=== PATIENT | male | born 1955 | race Caucasian/White ===

== ENCOUNTER → 2021-05-15 | Outpatient (CLI) | payer OTHER ==
[~2021-05-15] MED LIST: ACET325 PO; Atarax10 MG PO; Betamethasone D30 ML TOP; CEPH500 PO; DECADRON6 M1 PO; EPIPEN0.3 MG/0.3 IM; FAMO40 PO; FUROSEMIDE40 MG PO; GABA100 PO; GLUCHON PO; HYDACE10B PO; Hydrocortiso453.6 GM TOP; MOBIC15 MG PO; MULVITA PO; SPIRONOLACTONE50 MG PO; TRIDERM28.4 GM TOP; VISBIOME 112.51 EACH PO
== END ==
LOC: PLD 07:41 → LAB SHORT 07:41
DX: R21 Rash and other nonspecific skin eruption (principal)
CPT/HCPCS: 88312

== ENCOUNTER 2021-07-10 16:59 | Inpatient (IN) | payer MEDICARE, MEDICAID ==
[~2021-07-10] VITALS: Ht 182.9 cm; Wt 158.8 kg
[2021-07-10] MEDS ORDERED: FUROSEMIDE40 MG PO (19:47)
[2021-07-10] MEDS ORDERED: SPIRONOLACTONE50 MG PO (19:47)
[2021-07-10] MEDS ORDERED: Hydrocortiso453.6 GM TOP (19:47)
[2021-07-10] MEDS ORDERED: TRIDERM28.4 GM TOP (19:48)
[2021-07-10] MEDS ORDERED: Atarax10 MG PO (19:49)
[2021-07-10] MEDS ORDERED: MOBIC15 MG PO (19:49)
[2021-07-10] MEDS ORDERED: Betamethasone D30 ML TOP (19:50)
[2021-07-10] MEDS ORDERED: EPIPEN0.3 MG/0.3 IM (19:57)
[2021-07-10] MEDS ORDERED: FAMO40 PO (19:58)
[2021-07-10] MEDS ORDERED: GLUCHON PO (19:58)
[2021-07-10] MEDS ORDERED: MULVITA PO (19:58)
[2021-07-10 21:27] LABS: Source, Urine Clean Catch
[2021-07-10 21:32] LABS: Appearance, Urine Clear (Clear); Bilirubin, Urine Neg (Neg); Blood, Urine Neg (Neg); Color, Urine Yellow (P-Yellow); Glucose Qualitative, Urine Neg (Neg); Ketones, Urine 1+ (Neg); Leukocyte Esterase, Urine Neg (Neg); Nitrite, Urine Neg (Neg); Protein, Urine 1+ (Neg); Urobilinogen, Urine NORM (Normal)
[2021-07-11 05:00] LABS: BASOPHILS ABSOLUTE AUTO 0.07 K/mm3 (0.00-0.23); BASOPHILS PERCENT AUTO 0 % (0-2); EOSINOPHILS ABSOLUTE AUTO 0.06 K/mm3 (0.00-0.68); EOSINOPHILS PERCENT AUTO 0 % (0-6); Hematocrit 38.1 % (37.0-53.0); Hemoglobin 12.6 g/dL (13.5-17.5); IMMATURE GRAN PERCENT AUTO 1 % (0-1); LYMPHOCYTES ABSOLUTE AUTO 1.07 K/mm3 (0.84-5.20); LYMPHOCYTES PERCENT AUTO 6 % (21-46); MONOCYTES PERCENT AUTO 9 % (4-13); Mean Corpuscular HGB 31.7 pg (26.0-34.0); Mean Corpuscular HGB Conc 33.1 g/dL (31.5-36.5); Mean Corpuscular Volume 96 fL (80-100); Mean Platelet Volume 9.3 fL (9.1-12.4); NEUTROPHILS ABSOLUTE AUTO 14.45 K/mm3 (1.96-9.15); NEUTROPHILS PERCENT AUTO 83 % (41-73); Platelet Count 273 K/mm3 (150-400); RDW Coefficient Variation 14.4 % (11.7-14.2); RDW Standard Deviation 50.4 fL (35.1-46.3); Red Blood Cell Count 3.97 M/mm3 (4.30-5.90); White Blood Cell Count 17.35 K/mm3 (4.00-11.30)
[2021-07-11 05:37] LABS: Albumin, Blood 2.5 g/dL (3.4-5.0); Albumin/Globulin Ratio 0.6 (0.8-1.8); Bilirubin, Total 0.6 mg/dL (0.1-1.0); Bun/Creatinine Ratio 15.9 (12.0-20.0); Calcium, Blood 8.3 mg/dL (8.5-10.1); Creatinine, Blood 1.32 mg/dL (0.60-1.20); Globulin, Blood 4.1 g/dL (2.2-4.0); Potassium, Blood 3.6 mmol/L (3.5-5.5); Total Protein, Blood 6.6 g/dL (6.4-8.2)
[2021-07-12 05:06] LABS: Bun/Creatinine Ratio 17.7 (12.0-20.0); Creatinine, Blood 1.41 mg/dL (0.60-1.20); Potassium, Blood 3.2 mmol/L (3.5-5.5)
[2021-07-13 05:13] LABS: BASOPHILS PERCENT AUTO 1 % (0-2); EOSINOPHILS ABSOLUTE AUTO 0.16 K/mm3 (0.00-0.68); EOSINOPHILS PERCENT AUTO 1 % (0-6); Hematocrit 42.2 % (37.0-53.0); Hemoglobin 14.4 g/dL (13.5-17.5); IMMATURE GRAN ABSOLUTE AUTO 0.29 K/mm3 (0.00-0.10); IMMATURE GRAN PERCENT AUTO 2 % (0-1); LYMPHOCYTES ABSOLUTE AUTO 1.18 K/mm3 (0.84-5.20); LYMPHOCYTES PERCENT AUTO 7 % (21-46); MONOCYTES ABSOLUTE AUTO 2.08 K/mm3 (0.16-1.47); MONOCYTES PERCENT AUTO 12 % (4-13); Mean Corpuscular HGB 31.2 pg (26.0-34.0); Mean Corpuscular HGB Conc 34.1 g/dL (31.5-36.5); Mean Platelet Volume 9.4 fL (9.1-12.4); NEUTROPHILS ABSOLUTE AUTO 13.24 K/mm3 (1.96-9.15); NEUTROPHILS PERCENT AUTO 78 % (41-73); Platelet Count 397 K/mm3 (150-400); RDW Coefficient Variation 13.6 % (11.7-14.2); RDW Standard Deviation 46.3 fL (35.1-46.3); Red Blood Cell Count 4.62 M/mm3 (4.30-5.90); White Blood Cell Count 17.05 K/mm3 (4.00-11.30)
[2021-07-13 05:31] LABS: Mean Corpuscular Volume 91 fL (80-100)
[2021-07-13 05:32] LABS: Bun/Creatinine Ratio 20.4 (12.0-20.0); Calcium, Blood 9.5 mg/dL (8.5-10.1); Creatinine, Blood 1.67 mg/dL (0.60-1.20); Potassium, Blood 2.9 mmol/L (3.5-5.5)
[2021-07-14 04:56] LABS: BASOPHILS ABSOLUTE AUTO 0.12 K/mm3 (0.00-0.23); BASOPHILS PERCENT AUTO 1 % (0-2); EOSINOPHILS PERCENT AUTO 2 % (0-6); Hemoglobin 16.1 g/dL (13.5-17.5); IMMATURE GRAN PERCENT AUTO 3 % (0-1); LYMPHOCYTES ABSOLUTE AUTO 1.05 K/mm3 (0.84-5.20); LYMPHOCYTES PERCENT AUTO 8 % (21-46); MONOCYTES ABSOLUTE AUTO 1.59 K/mm3 (0.16-1.47); MONOCYTES PERCENT AUTO 13 % (4-13); Mean Corpuscular HGB 31.3 pg (26.0-34.0); Mean Corpuscular HGB Conc 34.3 g/dL (31.5-36.5); Mean Corpuscular Volume 91 fL (80-100); Mean Platelet Volume 9.4 fL (9.1-12.4); NEUTROPHILS ABSOLUTE AUTO 9.33 K/mm3 (1.96-9.15); NEUTROPHILS PERCENT AUTO 74 % (41-73); Platelet Count 364 K/mm3 (150-400); RDW Coefficient Variation 13.4 % (11.7-14.2); RDW Standard Deviation 45.8 fL (35.1-46.3); Red Blood Cell Count 5.15 M/mm3 (4.30-5.90); White Blood Cell Count 12.69 K/mm3 (4.00-11.30)
[2021-07-14] MEDS ORDERED: CEPH500 PO (11:42)
[2021-07-14] MEDS ORDERED: GABA100 PO (11:43)
[2021-07-14] MEDS ORDERED: VISBIOME 112.51 EACH PO (11:43)
[2021-07-14] MEDS ORDERED: HYDACE10B PO (11:44)
== END 2021-07-14 18:06 | disposition home or self-care (01) | DRG 872 ==
LOC: MEDS 16:59
PROVIDERS: Internal Medicine; ADMIT Family Medicine
DX: A41.9 Sepsis, unspecified organism (principal); N17.9 Acute kidney failure, unspecified; L03.115 Cellulitis of right lower limb; L03.116 Cellulitis of left lower limb; Z68.42 Body mass index [BMI] 45.0-49.9, adult; R65.20 Severe sepsis without septic shock; I89.0 Lymphedema, not elsewhere classified; E66.9 Obesity, unspecified; G62.9 Polyneuropathy, unspecified; D72.829 Elevated white blood cell count, unspecified; E87.6 Hypokalemia; T50.2X5A Adverse effect of carbonic-anhydrase inhibitors, benzothiadiazides and other diuretics, initial encounter; I87.2 Venous insufficiency (chronic) (peripheral); Z87.442 Personal history of urinary calculi; Z98.52 Vasectomy status; Z90.49 Acquired absence of other specified parts of digestive tract; Z88.8 Allergy status to other drugs, medicaments and biological substances
CPT/HCPCS: 36415; 71045; 80048; 80053; 83880; 84132; 85025; 87040; A9270; J1650; J1940; J3010; J3480; J7060

== ENCOUNTER 2021-07-14 23:42 | Inpatient (IN) | payer MEDICARE ==
[~2021-07-14] VITALS: Ht 182.9 cm; Wt 160.0 kg
[~2021-07-14 23:42] MED LIST changes: -ACET325 PO; -DECADRON6 M1 PO
--- NOTE | 2021-07-15 06:05 | NUR ---
SHIFT SUMMARY PATIENT ALERT AND ORIENTED. EXTREMELY WEAK ON HIS FEET, HAD A FALL AT HOME PRIOR TO ADMIT DUE TO THIS. REPORTS PAIN IN HIS LEGS DUE TO CELLULITIS. NO COMPLAINTS OF SHORTNESS OF BREATH. NO ACUTE ISSUES NOTED. CALL LIGHT WITHIN REACH. REPORT GIVEN TO ONCOMING RN.
[2021-07-15 06:33] LABS: Hematocrit 41.1 % (37.0-53.0); Hemoglobin 13.9 g/dL (13.5-17.5); Mean Corpuscular HGB Conc 33.8 g/dL (31.5-36.5); Mean Corpuscular Volume 92 fL (80-100); Mean Platelet Volume 9.4 fL (9.1-12.4); Platelet Count 372 K/mm3 (150-400); RDW Coefficient Variation 13.3 % (11.7-14.2); RDW Standard Deviation 45.3 fL (35.1-46.3); Red Blood Cell Count 4.49 M/mm3 (4.30-5.90); White Blood Cell Count 8.88 K/mm3 (4.00-11.30)
[2021-07-15 06:56] LABS: Albumin, Blood 2.7 g/dL (3.4-5.0); Albumin/Globulin Ratio 0.5 (0.8-1.8); Bilirubin, Total 0.7 mg/dL (0.1-1.0); Bun/Creatinine Ratio 26.9 (12.0-20.0); Calcium, Blood 9.1 mg/dL (8.5-10.1); Creatinine, Blood 1.75 mg/dL (0.60-1.20); Globulin, Blood 5.2 g/dL (2.2-4.0); Potassium, Blood 2.7 mmol/L (3.5-5.5); Total Protein, Blood 7.9 g/dL (6.4-8.2)
[2021-07-15 07:10] LABS: BAND PERCENT MAN 1 % (0-8); BASOPHILS ABSOLUTE MAN 0.17 K/mm3 (0.00-0.23); BASOPHILS PERCENT MAN 2 % (0-2); EOSINOPHILS PERCENT MAN 0 % (0-6); LYMPHOCYTES ABSOLUTE MAN 0.88 K/mm3 (0.84-5.20); LYMPHOCYTES PERCENT MAN 10 % (21-46); MONOCYTES ABSOLUTE MAN 1.77 K/mm3 (0.16-1.47); MONOCYTES PERCENT MAN 20 % (4-13); MYELOCYTE ABSOLUTE MAN 0.26 K/mm3 (0.00-0.00); MYELOCYTE PERCENT MAN 3 % (0-0); NEUTROPHILS ABSOLUTE MAN 5.77 K/mm3 (1.96-9.15); SEG NEUTROPHILS PERCENT MAN 64 % (41-73); TOTAL CELLS COUNTED 100
--- NOTE | 2021-07-15 18:16 | NUR ---
SHIFT SUMMARY PT HAS BEEN RESTING IN BED. NO SOB, CHEST PAIN OR RESP ISSUES. IN FACT DR ORDERED ANOTHER COVID TEST TO DETERMINE IF THE RAPID HE RECIEVED IN REEDSPORT WAS ACCURATE. RESULT STILL PENDING. PT IS VERY PAINFUL WHEN WALKING. BUT CAN GO TO THE BEDSIDE BATHROOM WITH STANDBY ASSISTANCE. HE IS ALSO PAINFUL IN HIS RIGHT SHOULDER. HE IS VERY PLEASANT AND COOPERATIVE WITH CARE.
[2021-07-15 19:10] LABS: SARS-Cov-2 (COVID-19) PCR, MMC POSITIVE (NEGATIVE)
--- NOTE | 2021-07-16 04:36 | NUR ---
SHIFT SUMMARY: A&0X4, REDNESS/CELLULITIS TO BLE, LEGS WRAPPED CDI, 3+ PITTING EDEMA TO BLE, E/U RESP, LCTA DIMINISHED BASES. RED RASH TO CHEST/ARMS PATIENT STATES THIS IS ONGOING. PAIN TREATED PER EMAR. PATIENT COVID POSITIVE, NO COMPLAINTS SOB/DYSPNEA. NO SIGNIFICANT EVENTS ON NOC.
[2021-07-16 05:11] LABS: Hematocrit 41.3 % (37.0-53.0); Mean Corpuscular HGB 31.2 pg (26.0-34.0); Mean Corpuscular HGB Conc 33.9 g/dL (31.5-36.5); Mean Corpuscular Volume 92 fL (80-100); Mean Platelet Volume 9.7 fL (9.1-12.4); Platelet Count 387 K/mm3 (150-400); RDW Coefficient Variation 13.2 % (11.7-14.2); RDW Standard Deviation 44.5 fL (35.1-46.3); Red Blood Cell Count 4.49 M/mm3 (4.30-5.90); White Blood Cell Count 7.37 K/mm3 (4.00-11.30)
[2021-07-16 05:31] LABS: BAND PERCENT MAN 13 % (0-8); BASOPHILS ABSOLUTE MAN 0.07 K/mm3 (0.00-0.23); BASOPHILS PERCENT MAN 1 % (0-2); EOSINOPHILS PERCENT MAN 0 % (0-6); LYMPHOCYTES ABSOLUTE MAN 0.81 K/mm3 (0.84-5.20); LYMPHOCYTES PERCENT MAN 11 % (21-46); METAMYELOCYTE ABSOLUTE MAN 0.22 K/mm3 (0.00-0.00); METAMYELOCYTE PERCENT MAN 3 % (0-0); MONOCYTES ABSOLUTE MAN 1.17 K/mm3 (0.16-1.47); MONOCYTES PERCENT MAN 16 % (4-13); MYELOCYTE ABSOLUTE MAN 0.14 K/mm3 (0.00-0.00); MYELOCYTE PERCENT MAN 2 % (0-0); NEUTROPHILS ABSOLUTE MAN 4.93 K/mm3 (1.96-9.15); SEG NEUTROPHILS PERCENT MAN 54 % (41-73); TOTAL CELLS COUNTED 100
[2021-07-16 05:55] LABS: Bun/Creatinine Ratio 35.9 (12.0-20.0); Calcium, Blood 9.2 mg/dL (8.5-10.1); Creatinine, Blood 1.28 mg/dL (0.60-1.20)
--- NOTE | 2021-07-16 18:18 | NUR ---
SHIFT SUMMARY PT Ax0x4. PLEASANT AND COOPERATIVE WITH CARE. PT DENIED PAIN THIS SHIFT. PT REQUESTED LEGS WITH CHRONIC LYMPHEDEMA BE RE-WRAPPED THIS SHIFT. BLE DRESSINGS WERE CHANGED AND SKIN WAS CLEANSED. COMPRESSION DRESSING APPLIED AFTER WOUND CARE. VITALS REVIEWED. CURRENT PLAN IS FOR PATIENT TO DC TOMORROW. PT CURRENTLY RESTING IN BED WITH CALL LIGHT IN REACH. DENIES ANY NEEDS AT THIS TIME.
[2021-07-17 05:01] LABS: Bun/Creatinine Ratio 33.6 (12.0-20.0); Calcium, Blood 9.7 mg/dL (8.5-10.1); Creatinine, Blood 1.28 mg/dL (0.60-1.20); Potassium, Blood 3.5 mmol/L (3.5-5.5)
--- NOTE | 2021-07-17 06:11 | NUR ---
SHIFT SUMMARY: NO SIGNINFCANT EVENTS ON NOC. PATIENT REMAINS WITH CELLULITIS TO BLE, WRAPS CDI, DRESINGS CHANGED BY DAY SHIFT. PAIN TREATED PER EMAR. PATIENT IS EAGER TO DC VOICED CONCERN REGARDING GETTING HIS PRESCRIPTIONS UPON DC. PER DAY SHIFT TEAM PATIENT PRESCRIPTIONS TO BE SENT TO [facility] FOR PATIENT PICKUP PRIOR TO RETURNING TO [place].
[2021-07-17] MEDS ORDERED: ACET325 PO (10:52)
[2021-07-17] MEDS ORDERED: DECADRON6 M1 PO (10:53)
--- NOTE | 2021-07-17 14:44 | NUR ---
PT DISCHARGED THE PT VERBALIZED UNDERSTANDING OF THE DC INSTRUCTIONS. THE PTS PRESCRIPTIONS WERE FAXED TO [facility] IN THE [facility]. THE PT WAS GIVEN A PRESCRIPTION FOR [facility]. THE PT WAS REMINDED TO FOLLOW UP WITH HIS PCP . THE PT WAS TRANSFERED VIA WHEELCHAIR TO MEET HIS RIDE AT THE FRONT ACCOMPANIED BY THE WEB ADMINISTRATOR. PT APPEARED TO BE BREATHING EASILY ON RA
== END 2021-07-17 12:45 | disposition home or self-care (01) | DRG 871 ==
LOC: MEDS 23:42
PROVIDERS: Internal Medicine; Student in an Organized Health Care Education/Training Program; ADMIT Internal Medicine
PROC: 8E0ZXY6 Isolation (ICD-10-PCS; principal; 2021-07-15)
PROC: XW033E5 Introduction of Remdesivir Anti-infective into Peripheral Vein, Percutaneous Approach, New Technology Group 5 (ICD-10-PCS; 2021-07-15)
PROC: 3E0333Z Introduction of Anti-inflammatory into Peripheral Vein, Percutaneous Approach (ICD-10-PCS; 2021-07-15)
DX: A41.89 Other specified sepsis (principal); U07.1 COVID-19; J96.01 Acute respiratory failure with hypoxia; N17.9 Acute kidney failure, unspecified; L03.115 Cellulitis of right lower limb; L03.116 Cellulitis of left lower limb; E87.1 Hypo-osmolality and hyponatremia; G62.9 Polyneuropathy, unspecified; E66.9 Obesity, unspecified; I89.0 Lymphedema, not elsewhere classified; E87.6 Hypokalemia; R65.20 Severe sepsis without septic shock; I87.2 Venous insufficiency (chronic) (peripheral); Z87.442 Personal history of urinary calculi; Z90.49 Acquired absence of other specified parts of digestive tract; Z98.52 Vasectomy status; Z98.890 Other specified postprocedural states; Z88.8 Allergy status to other drugs, medicaments and biological substances; Z79.2 Long term (current) use of antibiotics; Z79.899 Other long term (current) drug therapy
CPT/HCPCS: 36415; 78582; 80048; 80053; 84132; 84145; 85025; 85379; A9270; A9540; J0248; J1100; J1650; J7050; J7120; U0004